=== PATIENT | male | born 1945 | race Caucasian/White ===

== ENCOUNTER 2017-12-07 12:11 | Inpatient (IN) | payer OTHER ==
[~2017-12-07] VITALS: Ht 182.9 cm; Wt 72.4 kg
[2017-12-07] VITALS (43 sets, daily range): BP systolic 79–125; BP diastolic 43–66
--- NOTE | ~2017-12-07 | HC ---
[facility] [place] [address] CONSULTATION Name: CISCO SOL Room #: 422-P ADM IN M.R.#: [id number] Admission: 12/07/17 Attend Phys: George Tineo MD Discharge: Date of : 41 Report #: [id number] THIS REPORT FOR: //name// CC: Hang Rausch George Tineo DATE OF SERVICE: 12/09/2017 Nephrology Consultation REFERRING PHYSICIAN: George Tineo MD REASON FOR CONSULTATION: Elevated creatinine. HISTORY OF PRESENT ILLNESS: A 72-year-old patient presented with shortness of breath and cough, was found to have pneumonia, has had positive test for influenza, diffuse infiltrates, a creatinine that was initially 2.8, now down to 2.2 and I do not have any old records for comparison. The patient is quite demented and extremely poor historian, does not really know much about anything including his medical history. His creatinine has come down to 2.2 with IV fluids. PAST MEDICAL HISTORY: Taken from the records that we have includes a history of myocardial infarction and coronary artery disease and dementia. FAMILY HISTORY: Please see old charts. SOCIAL HISTORY: Apparently is not a current smoker. REVIEW OF SYSTEMS: Difficult to communicate with this patient who is demented and quite hard of hearing. Apparently, he is feeling better. He is less short winded. He is hungry and he is thirsty, but has been restricted to honey thickened liquids at the current time. MEDICATIONS: As listed include DuoNeb inhaler, amiodarone 200 mg b.i.d., azithromycin, Depakote, trazodone, Aricept, melatonin, Namenda, methylprednisolone 80 mg q.i.d., Tamiflu, Zosyn, vancomycin. PHYSICAL EXAMINATION: GENERAL: This is a somewhat ill-appearing gentleman. He is not in any acute distress. Again very hard of hearing. SKIN: Unremarkable. SKELETAL: Well developed, well nourished, nonobese. HEENT: Extraocular movements appear to be full, without scleral icterus. Hearing and vision are intact. Mucous membranes dry. NECK: Veins are flat. No carotid bruits are heard. [facility] [address] [place] [address] CONSULTATION Name: CISCO SOL Room #: 422-P ADM IN M.R.#: [id number] Admission: 12/07/17 Attend Phys: Georeg Tineo MD Discharge: Date of : 41 Report #: [id number] CHEST: Shows bilateral crackles. HEART: Regular. ABDOMEN: Soft and nontender. EXTREMITIES: Show no edema. NEUROLOGIC: Shows confusion and of course hardness of hearing. LABORATORY DATA: Urine sodium is only 11. Hemoglobin 14.2, white count 7.4, platelets 126. Sodium 146, potassium 3.7, chloride 112, bicarbonate 14, creatinine 2.2, bilirubin down from 3-1.2. ASSESSMENT: 1. Pneumonia. I suspect he had pneumococcal pneumonia despite the positive influenza tests. The elevated bilirubin is somewhat pathognomonic, as well as the elevated liver function tests in the setting of pneumonia in elderly patient. He is being treated appropriately anyway with very broad spectrum and very strong antibiotics. 2. Acute kidney injury. Creatinine is up, likely acute. It is improving. His urine sodium is very low. He needs more fluids. I will increase the rate. He has some metabolic acidosis, probably from all the saline he has gotten and I will add bicarbonate to his IV. 3. Dementia. <ELECTRONICALLY SIGNED> By: Kentrell Ireland MD 12/12/17 1128 1653 0207 Kentrell Ireland MD /nt
--- NOTE | ~2017-12-07 | EKG ---
[address] [address] ELECTROCARDIOGRAM REPORT Name: CISCO SOL Room #: 245-P ADM IN M.R.#: [id number] Admission: 12/07/17 Attend Phys: George Tineo MD Discharge: Date of : 41 Report #: [id number] THIS REPORT FOR: //name// [facility] ED Test Date: 2017-12-07 Test Time: 13:17:10 Pat Name: CISCO SOL Department: Room: 245 P Gender: M Medical Education Manager: SATISH : 1945 Requested By: Erick Lees Order Number: [id number] MD: Abel Gomez Measurements Intervals [place] Rate: 167 P: NE: QRS: -79 QRSD: 111 T: -89 QT: 321 QTc: 536 Interpretive Statements Atrial flutter Left anterior fascicular block Anteroseptal infarct, old Repolarization abnormality, prob rate related No previous ECG available for comparison Electronically Signed On 12-08-2017 9:03:02 CDT by Abel Gomez [email or web address] <ELECTRONICALLY SIGNED> By: Abel Gomez MD 12/08/1703 131 Abel Gomez MD /EPI
--- NOTE | ~2017-12-07 | HC ---
[facility] [place] [address] CONSULTATION Name: CISCO SOL Room #: 422-P ADM IN M.R.#: [id number] Admission: 12/07/17 Attend Phys: George Tineo MD Discharge: Date of : 41 Report #: [id number] THIS REPORT FOR: //name// CC: Hang Tineo DATE OF SERVICE: 12/08/2017 REASON FOR CONSULTATION: I was asked to evaluate concerning pneumonia and shock. HISTORY OF PRESENT ILLNESS: The patient is a 72-year-old with underlying dementia, senior care resident, who presents with confusion, hypoxia, fever and tachycardia. Developed hypotension. Presented to the Emergency Room on 12/07/2017. Placed on 100% FiO2 by BiPAP. The patient has had intermittent cough with thick sputum, unable to expectorate. No pleuritic chest pain. Has been sick for several days prior to his admission. No hemoptysis. The patient unable to give any further details for his underlying dementia. He was placed in Intensive Care Unit. Given IV fluids. Found to be in atrial fibrillation with rapid ventricular response. Placed on amiodarone drip. Remains on BiPAP mask throughout the night. Urine output has been fair. No diarrhea. No vomiting. REVIEW OF SYSTEMS: There has been no rash or decubiti. No other GI or issues. A 10-point review of system otherwise negative. The patient cannot elaborate on any further details. ALLERGIES: None. MEDICATIONS: As noted on his MAR. He was started on vancomycin, Zosyn, azithromycin, Tamiflu, also started on Solu-Medrol and amiodarone. PAST MEDICAL HISTORY: Coronary artery disease, myocardial infarction, depressive disorder, insomnia, dementia. FAMILY HISTORY: Noncontributory. SOCIAL HISTORY: Nonsmoker, no significant alcohol intake noted. PHYSICAL EXAMINATION: VITAL SIGNS: Currently afebrile with temperature 96.8, blood pressure 101/55, MAP of 70, heart rate 68, respiratory rate 26 on BiPAP mask. Peripheral IV in place. SKIN: Bruise to the left knee. No other decubiti or rash. No palpable adenopathy. [facility] [address] [address] CONSULTATION Name: CISCO SOL Room #: 422-P ADM IN M.R.#: [id number] Admission: 12/07/17 Attend Phys: George Tineo MD Discharge: Date of : 41 Report #: [id number] HEENT: Eyes without conjunctival injection or scleral icterus. Mouth edentulous with thick mucus in the posterior oropharynx. NECK: Supple, with no JVD, thyromegaly, or mass. LUNGS: Crackles in the bases bilaterally, right greater than left. No consolidation. No rub. HEART: Regular without murmur, gallop or rub. Pulses were palpable in the feet. ABDOMEN: Soft, nontender, no hepatosplenomegaly or mass. GENITOURINARY: External genitalia unremarkable without lesion or rash. EXTREMITIES: Without edema or cyanosis. The patient was alert and cooperative, although disoriented. NEUROLOGIC: Nonfocal with cranial nerves intact. Strength normal throughout. Sensation intact. LABORATORY STUDIES: Sodium 142, potassium 3.6, bicarbonate of 20, creatinine 2.8, AST 160, ALT 89, alkaline phosphatase 91, bilirubin 3, lactate 2.6. BNP 3476. Hemoglobin 9.6, platelet count 145,000, WBC 9, 24% bands. Urinalysis unremarkable. ABG on 100% FIO2, BiPAP mask, pO2 50, pCO2 25, pH 7.46. Blood cultures 1 of 2 showing gram-positive cocci. Influenza antigen positive both A and B. Chest x-ray: Bilateral perihilar infiltrates with right lower lobe predominant infiltrate. No consolidation. IMPRESSION: A 72-year-old, senior care with underlying dementia and pneumonia complicated by atrial fibrillation with rapid ventricular response. In addition, has acute kidney injury with creatinine up to 2.8, anemia and left shift. Bilirubin of 3. Unclear if this is chronic or not. He has bacteremia, indeterminate whether this is a contaminant or secondary to his pneumonitis. Influenza antigen A and B being positive raises question of false positive reaction. Agree with full support, ICU management, sepsis treatment, respiratory failure treatment. Continue with broad antibiotic coverage for healthcare-associated pneumonia. PLAN: Await cultures, antigens and nasal swab for PCR. We will adjust his antibiotics for his renal failure. We will narrow his antibiotic coverage once. More information is back from his microbiology studies. <ELECTRONICALLY SIGNED> By: Erick Gómez MD 12/11/17 1432 1424 0616 Erick Gómez MD /nt
--- NOTE | ~2017-12-07 | EKG ---
[address] [address] ELECTROCARDIOGRAM REPORT Name: CISCO SOL Room #: 245-P ADM IN M.R.#: [id number] Admission: 12/07/17 Attend Phys: George Tineo MD Discharge: Date of : 41 Report #: [id number] THIS REPORT FOR: //name// [facility] ED Test Date: 2017-12-07 Test Time: 12:28:57 Pat Name: CISCO SOL Department: Room: 245 P Gender: M Video Conference Specialist: herb : 1945 Requested By: Erick Lees Order Number: [id number] MD: Abel Gomez Measurements Intervals [place] Rate: 126 P: 50 GA: 132 QRS: -29 QRSD: 94 T: 60 QT: 319 QTc: 462 Interpretive Statements Sinus tachycardia Probable left atrial enlargement Borderline left axis deviation Anteroseptal infarct, old Minimal ST depression, lateral leads No previous ECG available for comparison Electronically Signed On 12-08-2017 9:01:46 CDT by Abel Gomez [email or web address] <ELECTRONICALLY SIGNED> By: Abel Gomez MD 12/08/17 0901 1228 1228 Abel Gomez MD /EPI
--- NOTE | ~2017-12-07 | 2DMMODE ---
[facility] [address] [place] [address] 2 D/M-MODE ECHOCARDIOGRAM Name: CISCO SOL Room #: 245-P ADM IN M.R.#: [id number] Admission: 12/07/17 Attend Phys: George Tineo MD Discharge: Date of : 41 Date of Service: 12/08/17 0853 Report #: [id number] THIS REPORT FOR: //name// APPROVED REPORT Study performed: 12/08/2017 07:50:03 EXAM: Comprehensive 2D, Doppler, and color-flow Echocardiogram Patient Location: ICU Room #: [facility] Status: routine BSA: 1.88 HR: 70 bpm BP: 96/47 mmHg Other Information Study Quality: Adequate Technically limited study due to lung disease. Indications Atrial Fibrillation Hypertension/HDD hx DC 2D Dimensions RVDd: 35.22 mm IVSd: 9.64 (7-11mm) LVOT Diam: 23.34 (18-24mm) LVDd: 43.63 mm PWd: 9.53 (7-11mm) Ascending Ao: 31.11 (22-36mm) LVDs: 35.35 (25-40mm) Aortic Root: 34.02 mm IVC: 23.00 mm Volumes Left Atrial Volume (Systole) Single Plane 4CH: 22.99 mL Single Plane 2CH: 33.19 mL LA ESV Index: 17.00 mL/m2 Aortic Valve AoV Peak Ghanshyam.: 0.94 m/s AO Peak Gr.: 3.52 mmHg LVOT Max P.04 mmHg LVOT Max V: 0.71 m/s VINH Vmax: 3.25 cm2 Mitral Valve E/A Ratio: 0.8 [facility] [address] [place] [address] 2 D/M-MODE ECHOCARDIOGRAM Name: CISCO SOL Room #: 245-[facility] IN [facility].#: [id number] Admission: 12/07/17 Attend Phys: George Tineo MD Discharge: Date of : 41 Date of Service: 12/08/17 0853 Report #: [id number] MV Decel. Time: 266.21 ms MV E Max Ghanshyam.: 0.74 m/s MV A Ghanshyam.: 0.92 m/s MV PHT: 77.20 ms IVRT: 143.02 ms Pulmonary Valve PV Peak Ghanshyam.: 0.84 m/s PV Peak Gr.: 2.82 mmHg Tricuspid Valve TR Peak Ghanshyam.: 2.45 m/s RAP Estimate: 15.00 mmHg TR Peak Gr.: 24.17 mmHg PA Pressure: 39.00 mmHg Left Ventricle The left ventricle is normal size. There is normal left ventricular wall thickness. Left ventricular systolic function is mildly decreased. LVEF is 40-45%. Transmitral Doppler flow pattern suggests impaired LV relaxation. Right Ventricle The right ventricle is normal size. The right ventricular systolic function is normal. Atria The left atrium size is normal. The right atrium size is normal. Aortic Valve Mild aortic valve sclerosis. No aortic regurgitation is present. There is no aortic valvular stenosis. Mitral Valve Mild mitral annular calcification. There is no mitral valve regurgitation noted. No evidence of mitral valve stenosis. Tricuspid Valve The tricuspid valve is normal in structure. Mild tricuspid regurgitation. PAP is estimated at 39 mmHg. Pulmonic Valve Pulmonic valve is not well visualized. Great Vessels The aortic root is normal in size. IVC is dilated and collapses <50% with inspiration. [facility] [address] [place] [address] 2 D/M-MODE ECHOCARDIOGRAM Name: CISCO SOL Room #: 245-P [facility] IN M.R.#: [id number] Admission: 12/07/17 Attend Phys: George Tineo MD Discharge: Date of : 41 Date of Service: 12/08/17 0853 Report #: [id number] Pericardium There is no pericardial effusion. <Conclusion> The left ventricle is normal size. There is normal left ventricular wall thickness. Left ventricular systolic function is mildly decreased. Transmitral Doppler flow pattern suggests impaired LV relaxation. The right ventricle is normal size. The left atrium size is normal. The right atrium size is normal. Mild aortic valve sclerosis. There is no aortic valvular stenosis. There is no mitral valve regurgitation noted. Mild tricuspid regurgitation. PAP is estimated at 39 mmHg. There is no pericardial effusion. <ELECTRONICALLY SIGNED> By: Chi Ovalle MD 12/08/17852 2 2 Chi Ovalle MD /INF
--- NOTE | ~2017-12-07 | HC ---
[facility] [place] [address] CONSULTATION Name: CISCO SOL Room #: 245-P ADM IN M.R.#: [id number] Admission: 12/07/17 Attend Phys: George Tineo MD Discharge: Date of : 41 Report #: [id number] THIS REPORT FOR: //name// CC: Hang Tineo Pulmonary Consultation REFERRAL PHYSICIAN: George Tineo MD REASON FOR REFERRAL: Acute hypoxic respiratory failure. HISTORY OF PRESENT ILLNESS: The patient is a 72-year-old white male who was brought to emergency room with dyspnea and weakness. He resides at [facility]. He was found to be hypoxic. A pulmonary consultation is requested. The patient has a history of dementia, insomnia, major depression. He resides in a facility. Normally at baseline, he is alert and oriented times 4. He ambulates independently. Two days prior to presentation, the patient has complained of weakness, progressively worsened where he was wheelchair bound. Early today, his saturation was measured. It was said to be 70%. Heart rate was 130 beats per minute. For that reason, he was brought to the emergency room. He is a and normally goes to the [facility]. Currently, he is awake and moderately distressed. He is on BiPAP. Influenza swab was positive for influenza A and B. PAST MEDICAL HISTORY: As mentioned above, history of coronary artery disease, myocardial infarction, depression, insomnia, and dementia. He has medical directive as a DNR. PAST SURGICAL HISTORY: Unremarkable. ALLERGIES: None to medications. HOME MEDICATIONS: From home include Aricept, Depakote, Desyrel, melatonin, and Namenda. FAMILY HISTORY: Noncontributory. SOCIAL HISTORY: The patient is a lifetime nonsmoker. No tobacco or alcohol use history. He resides at a senior living facility. REVIEW OF SYSTEMS: Deferred, as the patient cannot answer to questions. [facility] [address] [place] [address] CONSULTATION Name: CISCO SOL Room #: 245-P [facility] IN [facility]#: [id number] Admission: 12/07/17 Attend Phys: George Tineo MD Discharge: Date of : 41 Report #: [id number] PHYSICAL EXAMINATION: GENERAL: He is awake, alert, moderately distressed. He is tolerating the BiPAP. VITAL SIGNS: Temperature is 102.5 degrees Fahrenheit, pulse is 130, respiratory rate is 30, blood pressure 100/66 mmHg, saturation 91%. HEENT: Normocephalic, atraumatic. NECK: Supple, without any lymphadenopathy or thyromegaly. CHEST: Breath sounds are fair. No obvious wheezes or rales. CARDIOVASCULAR: Normal S1, S2. There are no murmurs or gallop. There is no JVD. There is no carotid bruit. Pulses are 2+/4+ bilaterally. ABDOMEN: Soft, nontender, no organomegaly or masses felt. GENITOURINARY: Deferred. RECTAL: Deferred. EXTREMITIES: There is no edema, cyanosis or clubbing. IMAGING DATA: Chest x-ray, bilateral interstitial infiltrates, mild. LABORATORY DATA: Sodium 140, potassium 4.1, chloride 106, CO2 is 21, BUN 78, creatinine is 2.7. Liver enzymes are mildly abnormal. WBC 6800, hemoglobin 13.1, platelets are normal. Troponin 0.7. Arterial blood gas revealed pH 7.46, pCO2 of 25, pO2 50 on FiO2 100%. IMPRESSION: 1. Acute hypoxic respiratory failure in a 72-year-old white male. Chest x-ray shows mild bilateral interstitial infiltrates. Nasal swab was positive for influenza A and B. Suspect influenza pneumonia, apparently both A and B being positive. 2. Acute kidney injury. 3. Elevated liver function tests, suspect related to sepsis. 4. Acute kidney injury. Elevated BUN suggests azotemia, probable volume depletion. 5. Severe protein calorie malnutrition. 6. Elevated troponin, suspect stress demand myocardial ischemia. 7. History of depression. 8. Dementia. 9. Medical directive, according to family is a DNR. RECOMMENDATION: We will continue noninvasive ventilation, Tamiflu, wean O2 for saturation 90%. We would suggest broad spectrum antibiotics. DVT and GI prophylaxis is indicated. Should this patient's condition worsen and appears to be suffering, given that he is a DNR, I would recommend morphine and benzodiazepine for comfort [place] [address] CONSULTATION Name: CISCO SOL Room #: 245-P ADM IN M.R.#: [id number] Admission: 12/07/17 Attend Phys: George Tineo MD Discharge: Date of : 41 Report #: [id number] Thank you for the consultation. <ELECTRONICALLY SIGNED> By: Ebenezer Bear MD 12/08/17 1906 1717 0524 Ebenezer Bear MD /nt
[2017-12-07 12:28] LABS: HEMATOCRIT 37.7 % (42.0-52.0)
[2017-12-07 12:30] LABS: HEMOGLOBIN 13.1 gm/dL (14.0-18.0); MCH 30.7 pg (26.0-34.0); MCHC 34.7 g/dL (28.0-37.0); MCV 88.4 fL (80.0-100.0); PLATELET COUNT 226 thou/uL (150-400); RBC 4.27 mil/uL (4.50-6.00); RDW 14.5 % (10.5-14.5); WBC 6.8 thou/uL (4.0-11.0)
[2017-12-07 12:45] LABS: BE(vivo) -4.1 mmol/L (-2 to +3); HCO3 18.1 mmol/L (22.0-26.0); PCO2 25.9 mmHg (35.0-45.0); PO2 50.5 mmHg (80.0-100.0); pH 7.463 (7.360-7.450); sO2 88.6 % (92.0-98.0)
[2017-12-07 12:45] LABS: URINE BILIRUBIN 1+ (Negative); URINE BLOOD 2+ (Negative); URINE CLARITY CLOUDY; URINE COLOR YELLOW; URINE GLUCOSE-RANDOM* NEGATIVE (Negative); URINE KETONES NEGATIVE (Negative); URINE LEUKOCYTES-REFLEX NEGATIVE (Negative); URINE NITRITE-REFLEX NEGATIVE (Negative); URINE PROTEIN (DIPSTICK) 2+ (Negative); URINE SPECIFIC GRAVITY 1.025 (1.005-1.035)
[2017-12-07 12:49] LABS: CREATININE 2.7 mg/dL (0.7-1.3)
[2017-12-07 12:51] LABS: POTASSIUM 4.1 mmol/L (3.5-5.1)
[2017-12-07 13:06] LABS: ICTOTEST (BILI CONFIRMATORY) Positive (Negative)
[2017-12-07 13:07] LABS: SQUAMOUS 4-10 Moderate /LPF (0-3)
[2017-12-07 13:08] LABS: AMORPHOUS URATES Moderate /LPF (None Seen); BACTERIA-REFLEX 1-9 Few /HPF (None Seen); COARSE GRANULAR CASTS 0-3 Few /LPF (None Seen); URINE RBC None Seen /HPF (0-2); URINE WBC-REFLEX 0-5 Rare /HPF (0-5)
[2017-12-07 13:11] LABS: ALBUMIN 1.9 g/dL (3.4-5.0); MAGNESIUM 2.4 mg/dL (1.8-2.4); TOTAL PROTEIN 7.1 g/dL (6.4-8.2); TROPONIN-I 0.72 ng/mL (<0.06)
[2017-12-07 13:12] LABS: ABSOLUTE NEUTROPHILS 6.1 thou/uL (1.4-8.2); PLATELET ESTIMATE NORMAL
[2017-12-07 13:15] LABS: TOXIC GRANULATION 2+
[2017-12-07] MEDS ORDERED: DEPAKOTE ER500 MG PO (14:26)
[2017-12-07] MEDS ORDERED: ARICEPT 5 MG TAB5 MG PO (14:26)
[2017-12-07] MEDS ORDERED: NAMENDA 5 MG TAB5 M1 PO (14:27)
[2017-12-07] MEDS ORDERED: NAMENDA 10 MG T10 MG PO (14:40)
[2017-12-07] MEDS ORDERED: MELATONIN3 MG PO (14:40)
[2017-12-07] MEDS ORDERED: TRAZODONE HCL50 MG PO (14:40)
[2017-12-08] VITALS (16 sets, daily range): BP systolic 86–117; BP diastolic 43–98
[2017-12-08 05:51] LABS: ABSOLUTE NEUTROPHILS 8.5 thou/uL (1.4-8.2); BASOPHILS 0.1 % (0.0-2.0); EOSINOPHILS 0.1 % (0.0-3.0); HEMATOCRIT 29.2 % (42.0-52.0); LYMPHOCYTES 3.8 % (24.0-44.0); MCH 29.2 pg (26.0-34.0); MCHC 32.9 g/dL (28.0-37.0); MCV 88.5 fL (80.0-100.0); MONOCYTES 1.6 % (1.0-8.0); POLYS 94.4 % (36.0-66.0); RDW 14.4 % (10.5-14.5)
[2017-12-08 05:53] LABS: CALCIUM 8.3 mg/dL (8.5-10.1); CREATININE 2.8 mg/dL (0.7-1.3); POTASSIUM 3.6 mmol/L (3.5-5.1)
[2017-12-08 05:54] LABS: HEMOGLOBIN 9.6 gm/dL (14.0-18.0)
[2017-12-08 05:55] LABS: PLATELET COUNT 145 thou/uL (150-400)
[2017-12-09 05:18] VITALS: BP 111/53
[2017-12-09 06:26] LABS: ABSOLUTE NEUTROPHILS 6.8 thou/uL (1.4-8.2); BASOPHILS 0.5 % (0.0-2.0); HEMATOCRIT 44.9 % (42.0-52.0); LYMPHOCYTES 3.9 % (24.0-44.0); MCH 28.3 pg (26.0-34.0); MCHC 31.7 g/dL (28.0-37.0); MCV 89.4 fL (80.0-100.0); MONOCYTES 2.9 % (1.0-8.0); PLATELET COUNT 126 thou/uL (150-400); POLYS 92.7 % (36.0-66.0); RBC 5.03 mil/uL (4.50-6.00); RDW 14.7 % (10.5-14.5); WBC 7.4 thou/uL (4.0-11.0)
[2017-12-09 06:28] LABS: HEMOGLOBIN 14.2 gm/dL (14.0-18.0)
[2017-12-09 06:30] LABS: ALBUMIN 1.6 g/dL (3.4-5.0); CALCIUM 8.2 mg/dL (8.5-10.1); CREATININE 2.2 mg/dL (0.7-1.3); POTASSIUM 3.7 mmol/L (3.5-5.1); TOTAL BILIRUBIN 1.2 mg/dL (<0.1-1.0)
[2017-12-09 16:32] LABS: URINE CREATININE-RANDOM* 93.7 mg/dL
[2017-12-09 21:05] VITALS: BP 130/56
[2017-12-10 04:00] VITALS: BP 123/58
[2017-12-10 06:42] LABS: ALBUMIN 1.5 g/dL (3.4-5.0); CALCIUM 8.5 mg/dL (8.5-10.1); CREATININE 2.3 mg/dL (0.7-1.3); PHOSPHORUS 3.6 mg/dL (2.5-4.9)
[2017-12-10 08:23] VITALS: BP 136/74
[2017-12-10 22:45] VITALS: BP 143/67
[2017-12-11 04:30] LABS: ABSOLUTE NEUTROPHILS 8.6 thou/uL (1.4-8.2); BASOPHILS 0.1 % (0.0-2.0); HEMATOCRIT 32.4 % (42.0-52.0); LYMPHOCYTES 6.5 % (24.0-44.0); MCH 28.9 pg (26.0-34.0); MCHC 32.5 g/dL (28.0-37.0); MCV 88.8 fL (80.0-100.0); MONOCYTES 4.3 % (1.0-8.0); POLYS 89.1 % (36.0-66.0); RBC 3.64 mil/uL (4.50-6.00); RDW 14.7 % (10.5-14.5); WBC 9.7 thou/uL (4.0-11.0)
[2017-12-11 04:31] VITALS: BP 179/95
[2017-12-11 04:33] LABS: HEMOGLOBIN 10.5 gm/dL (14.0-18.0); PLATELET COUNT 262 thou/uL (150-400)
[2017-12-11 04:51] LABS: ALBUMIN 1.7 g/dL (3.4-5.0); CALCIUM 8.7 mg/dL (8.5-10.1); PHOSPHORUS 3.7 mg/dL (2.5-4.9); POTASSIUM 3.4 mmol/L (3.5-5.1)
[2017-12-11 07:28] VITALS: BP 176/79
[2017-12-11 16:30] VITALS: BP 167/76
[2017-12-11 19:14] VITALS: BP 175/70
[2017-12-12 04:33] VITALS: BP 178/78
[2017-12-12 04:48] LABS: ALBUMIN 1.5 g/dL (3.4-5.0); CALCIUM 7.8 mg/dL (8.5-10.1); CREATININE 1.5 mg/dL (0.7-1.3); PHOSPHORUS 3.7 mg/dL (2.5-4.9); POTASSIUM 4.1 mmol/L (3.5-5.1)
[2017-12-12 11:11] VITALS: BP 174/78
[2017-12-12 20:01] VITALS: BP 164/67
[2017-12-12 23:07] LABS: ADENOVIRUS Negative (Negative); INFLUENZA A Negative (Negative); INFLUENZA B Negative (Negative); METAPNEUMOVIRUS Negative (Negative); PARAINFLUENZA 1 Negative (Negative); PARAINFLUENZA 2 Negative (Negative); PARAINFLUENZA 3 Negative (Negative); RHINOVIRUS Positive (Negative); RSV A Negative (Negative); RSV B Negative (Negative)
[2017-12-13] VITALS (7 sets, daily range): BP systolic 93–167; BP diastolic 49–148
[2017-12-13 06:40] LABS: ALBUMIN 1.6 g/dL (3.4-5.0); CALCIUM 8.2 mg/dL (8.5-10.1); CREATININE 1.3 mg/dL (0.7-1.3); PHOSPHORUS 3.6 mg/dL (2.5-4.9); POTASSIUM 3.8 mmol/L (3.5-5.1)
[2017-12-14 07:25] VITALS: BP 143/68
[2017-12-14] MEDS ORDERED: PACERONE 200 M200 M1 PO (11:37)
[2017-12-14] MEDS ORDERED: AUGMENTIN 500-1 EACH PO (11:37)
== END 2017-12-14 17:31 | DRG 871 ==
LOC: ER 12:11 → EROBS 13:17 → ICU 13:17 → 4E 12-08 19:52 → SICU 12-13 21:00
PROVIDERS: Emergency Medicine; Hospitalist; Internal Medicine Nephrology; Specialist
PROC: 5A09357 Assistance with Respiratory Ventilation, Less than 24 Consecutive Hours, Continuous Positive Airway Pressure (ICD-10-PCS; principal; 2017-12-07)
PROC: 5A2204Z Restoration of Cardiac Rhythm, Single (ICD-10-PCS; 2017-12-07)
PROC: 5A09357 Assistance with Respiratory Ventilation, Less than 24 Consecutive Hours, Continuous Positive Airway Pressure (ICD-10-PCS; 2017-12-08)
DX: A41.9 Sepsis, unspecified organism (principal); J96.01 Acute respiratory failure with hypoxia; E43 Unspecified severe protein-calorie malnutrition; J13 Pneumonia due to Streptococcus pneumoniae; J69.0 Pneumonitis due to inhalation of food and vomit; J10.08 Influenza due to other identified influenza virus with other specified pneumonia; N17.9 Acute kidney failure, unspecified; I48.92 Unspecified atrial flutter; E87.0 Hyperosmolality and hypernatremia; F32.9 Major depressive disorder, single episode, unspecified; G47.00 Insomnia, unspecified; F03.90 Unspecified dementia, unspecified severity, without behavioral disturbance, psychotic disturbance, mood disturbance, and anxiety; E86.0 Dehydration; E80.6 Other disorders of bilirubin metabolism; E88.09 Other disorders of plasma-protein metabolism, not elsewhere classified; I25.10 Atherosclerotic heart disease of native coronary artery without angina pectoris; Z66 Do not resuscitate; R41.0 Disorientation, unspecified; I48.0 Paroxysmal atrial fibrillation; M62.84 Sarcopenia; I25.2 Old myocardial infarction; Z28.21 Immunization not carried out because of patient refusal; Z68.21 Body mass index [BMI] 21.0-21.9, adult; Z79.899 Other long term (current) drug therapy
CPT/HCPCS: 10078; 10783; 15002